=== PATIENT | female | born 1945 | race Caucasian/White ===

== ENCOUNTER 2018-07-21 08:53 | Day surgery (SDC) | payer MEDICARE, BC ==
[~2018-07-21 08:53] MED LIST: KETOROLAC TROMETHAMINE 0.45% 4 DROP/0.4 ML DROPERETTE OD PRN
[2018-07-21] MEDS: TROPICAMIDE 1% OPH SOLN 3 ML OD PRN ×3 (09:17→09:37)
[2018-07-21] MEDS: CYCLOPENTOLATE 0.2%/PHENYLEPHRINE 1% OPH SOLN 2 ML OD PRN ×3 (09:17→09:37)
[2018-07-21] MEDS: BESIFLOXACIN HCL 0.6% OPH SUSP 5 ML BOTTLE OD PRN ×4 (09:18→10:12)
[2018-07-21] MEDS: TETRACAINE HCL 0.5% OPH SOLN 4 ML OD PRN ×3 (09:19→09:46)
[2018-07-21] MEDS ORDERED: MIDAZOLAM 2 MG/2 ML INJ ONE (09:27)
[2018-07-21] MEDS: LIDOCAINE 1% INJ-PF (10 MG/ML) 30 ML SDV ONE ×2 (10:00)
[2018-07-21] MEDS: CHONDR SU A NA/HYALUR INTRAOC KIT (SURGICARE) ONE ×2 (10:00)
[2018-07-21] MEDS: EPINEPHRINE INJ/PF 1 MG/1 ML AMPULE ONE ×2 (10:00)
[2018-07-21] MEDS: DORZOLAMIDE HCL 2%/TIMOLOL MALEAT 0.5% OPH SOLN 10 ML OD PRN ×2 (10:12)
--- NOTE | 2018-07-21 21:17 | [facility] OPERATIVE REPORT E ---
[facility] Operative Report NAME: MICHELLE ARANGO AGE: 73Y DATE OF SURGERY: 07/21/2018 ROOM: PREOPERATIVE DIAGNOSIS: CATARACT, RIGHT EYE. POSTOPERATIVE DIAGNOSIS: CATARACT, RIGHT EYE. OPERATION: Cataract extraction with insertion of a Restore IOL of the right eye. SURGEON: CORINA ASKEW M.D. ANESTHESIA: Topical. PROCEDURE: After obtaining appropriate consent, the patient's right eye was prepped and draped in sterile fashion as well as the surgeon in a sterile manner and cataract surgery was started. First a paracentesis blade was used to make a side-port incision. Viscoelastic was used to inflate the anterior chamber. Next a 2.4 mm incision was made with a 2.4 mm blade, clear corneal temporally. A continuous capsulorrhexis was made using a cystotome and Utrata forceps. Following this hydrodissection was carried out to make the lens fully loose and mobile and it was rotated 90 degrees. Following this, a zijkjt-wsf-ogaraik technique was used to phacoemulsify the lens with a CDE of 4.89. The remaining cortex was removed with irrigation/aspiration. Provisc was instilled into the capsular bag to inflate the bag. A SN6AD1, 22.0 diopter lens was placed. The remaining viscoelastic material was removed with irrigation/aspiration. Following this, the incision was found to be watertight. Besivance was instilled into the eye and a protective shield was placed over the eye. The patient returned to the postoperative recovery in stable condition. DICTATING PHYSICIAN: CORINA ASKEW M.D. 5233M [id number] PHY#: [id number] ID: [id number] JOB#: [id number] ACCT: [id number] cc:CORINA ASKEW M.D. >
--- NOTE | 2018-07-21 21:17 | [facility] H&P E ---
[facility] History and Physical NAME: MICHELLE ARANGO : 1945 AGE: 73Y ADMITTED: 07/21/2018 ROOM: ATTENDING PHYSICIAN: CORINA ASKEW M.D. FINAL DIAGNOSIS: Cataract, right eye. HOSPITAL COURSE: This is a 73-year-old female who underwent cataract extraction of the right eye with insertion of a Restore IOL. Patient underwent surgery because she was having trouble seeing road signs. DISCHARGE INSTRUCTIONS: She should be on a regular diet. No bending at her waist, no heavy lifting. She should use Besivance, Ilevro and Durezol at 3:00 p.m. and 8:00 p.m. Sleep with a rigid shield. I will see her for a 1-day postoperative tomorrow. DICTATING PHYSICIAN: CORINA ASKEW M.D. 5233M 4 PHY#: [id number] ID: [id number] JOB#: [id number] ACCT: [id number] cc:CORINA ASKEW M.D. >
[2018-07-22] MEDS ORDERED: LIDOCAINE 4% INJ/PF (40 MG/ML) 5 ML AMPUL OD PRN (05:00)
[2018-07-22] MEDS ORDERED: BUPIVACAINE HCL 0.75% INJ/PF (7.5 MG/1 ML) 10 ML SDV OD PRN (05:00)
== END 2018-07-21 10:55 | disposition home or self-care (01) ==
LOC: SC 08:53
PROVIDERS: ATTEND Internal Medicine
DX: H25.13 Age-related nuclear cataract, bilateral (principal); Z87.891 Personal history of nicotine dependence; Z79.1 Long term (current) use of non-steroidal anti-inflammatories (NSAID); Z85.828 Personal history of other malignant neoplasm of skin
CPT/HCPCS: 66984; V2788; J2250; J3490 ×3; A9270; J0171; 142

== ENCOUNTER 2018-08-11 08:18 | Day surgery (SDC) | payer MEDICARE, BC ==
[~2018-08-11 08:18] MED LIST changes: -KETOROLAC TROMETHAMINE 0.45% 4 DROP/0.4 ML DROPERETTE OD PRN; +KETOROLAC TROMETHAMINE 0.45% 4 DROP/0.4 ML DROPERETTE OS PRN
[2018-08-11] MEDS ORDERED: EPINEPHRINE INJ/PF 1 MG/1 ML AMPULE ONE (08:20)
[2018-08-11] MEDS ORDERED: CHONDR SU A NA/HYALUR INTRAOC KIT (SURGICARE) ONE (08:21)
[2018-08-11] MEDS ORDERED: LIDOCAINE 1% INJ-PF (10 MG/ML) 30 ML SDV ONE (08:21)
[2018-08-11] MEDS: TETRACAINE HCL 0.5% OPH SOLN 4 ML OS PRN ×2 (09:05→09:28)
[2018-08-11] MEDS: TROPICAMIDE 1% OPH SOLN 3 ML OS PRN ×3 (09:06→09:28)
[2018-08-11] MEDS: CYCLOPENTOLATE 0.2%/PHENYLEPHRINE 1% OPH SOLN 2 ML OS PRN ×3 (09:06→09:28)
[2018-08-11] MEDS: BESIFLOXACIN HCL 0.6% OPH SUSP 5 ML BOTTLE OS PRN ×4 (09:06→10:00)
[2018-08-11] MEDS ORDERED: MIDAZOLAM 2 MG/2 ML INJ ONE (09:35)
[2018-08-11] MEDS: DORZOLAMIDE HCL 2%/TIMOLOL MALEAT 0.5% OPH SOLN 10 ML OS PRN ×2 (09:53→10:00)
--- NOTE | 2018-08-11 20:18 | [facility] OPERATIVE REPORT E ---
[facility] Operative Report NAME: MICHELLE ARANGO AGE: 73Y DATE OF SURGERY: 08/11/2018 ROOM: PREOPERATIVE DIAGNOSIS: CATARACT, LEFT EYE. POSTOPERATIVE DIAGNOSIS: CATARACT, LEFT EYE. OPERATION: Cataract extraction with insertion of a ReSTOR IOL of the left eye. SURGEON: CORINA ASKEW M.D. ANESTHESIA: Topical. PROCEDURE: After obtaining appropriate consent, the patient's left eye was prepped and draped in sterile fashion as well as the surgeon in a sterile manner and cataract surgery was started. First a paracentesis blade was used to make a side-port incision. Viscoelastic was used to inflate the anterior chamber. Next a 2.4 mm incision was made with a 2.4 mm blade, clear corneal temporally. A continuous capsulorrhexis was made using a cystotome and Utrata forceps. Following this hydrodissection was carried out to make the lens fully loose and mobile and it was rotated 90 degrees. Following this, a mywskh-zvi-gmbarth technique was used to phacoemulsify the lens with a CDE of 5.90. The remaining cortex was removed with irrigation/aspiration. Provisc was instilled into the capsular bag to inflate the bag. A SN6AD1, 22.0 diopter lens was placed. The remaining viscoelastic material was removed with irrigation/aspiration. Following this, the incision was found to be watertight. Besivance was instilled into the eye and a protective shield was placed over the eye. The patient returned to the postoperative recovery in stable condition. DICTATING PHYSICIAN: CORINA ASKEW M.D. 5020M 2011 PHY#: [id number] ID: [id number] JOB#: [id number] ACCT: [id number] cc:CORINA ASKEW M.D. >
--- NOTE | 2018-08-11 20:18 | [facility] DISCHARGE SUMMARY E ---
[facility] Discharge Summary NAME: MICHELLE ARANGO AGE: 73Y ADMITTED: 08/11/2018 DISCHARGED: 08/11/2018 HOSPITAL COURSE: This is a 73-year-old female who underwent cataract extraction with ReSTOR IOL of the left eye. DIAGNOSIS: CATARACT, LEFT EYE. She underwent surgery because she was having difficulty seeing small print. DISCHARGE INSTRUCTIONS: She should be on a regular diet. No bending at her waist, no heavy lifting. She should use Besivance, PROLENSA, and Durezol at 3 p.m. and 8 p.m. and sleep with a rigid shield. I will see her for her 1 day postoperative tomorrow. DICTATING PHYSICIAN: CORINA ASKEW M.D. 5020M 2013 PHY#: [id number] ID: [id number] JOB#: [id number] ACCT: [id number] cc:CORINA ASKEW M.D. >
== END 2018-08-11 10:38 | disposition home or self-care (01) ==
LOC: SC 08:18
PROVIDERS: ATTEND Internal Medicine
DX: H25.12 Age-related nuclear cataract, left eye (principal); Z96.1 Presence of intraocular lens; Z87.891 Personal history of nicotine dependence; Z85.828 Personal history of other malignant neoplasm of skin
CPT/HCPCS: 66984; V2788; J2250; J3490 ×3; A9270; J0171; 142